=== PATIENT | male | born 2005 | race Caucasian/White ===

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

== ENCOUNTER 2024-01-13 18:46 | Outpatient (CLI) | payer OTHER, SELFPAY | END 2024-01-13 18:47 | disposition home or self-care (01) | PROVIDERS: PCP Family Medicine; Visit Provider Family Medicine | DX: R53.83 Other fatigue (principal); Z13.21 Encounter for screening for nutritional disorder; F41.9 Anxiety disorder, unspecified; R63.6 Underweight | CPT/HCPCS: 80053; 80061; 82607; 82652; 82728; 84443 ==